=== PATIENT | male | born 1990 | race Caucasian/White ===

== ENCOUNTER 2017-05-04 14:27 | Emergency (ER) | payer BC ==
[2017-05-04 14:40] VITALS: BP 155/92
--- NOTE | 2017-05-04 14:44 | UC ---
Cardiac HPI - HPI Summary HPI Summary: Pt presents to with sister. 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 States he started to feel anxious. Pt states he then develop chest burning and sob. Pt states radiated from the stomach to right chest. Pt states he felt a little sweaty. Pt state sx continued for approx 3-0 min. States he went to the medical unit at [place] where they checked his BP which was high - he was recommended to come here. Pt states enroute here he started to feel improved. By the time of evaluation, pt without any complaints. States feels completely normal and "I shouldn't have come, it was just like my panic attacks." Pt without any complaints at the time of my eval. no cp, sob, abd pain. no n/v/d. No fever, chills, rash. No COTTO, vision changes. Pt states his previous PCP at [facility] in [place] wanted to start him on Paxil, but he was concerned of side effects so didn't start. Pt states this has been going on for years. No tobacco, no htn, dm, hld, family hx of cardiac. Pt states he walks a lot and pushes carts at work without chest pain, shortness of breath or difficulty pt's medications reviewed at this visit - History of Current Complaint Chief Complaint: UCChestPain Stated Complaint: CHEST PAIN Time Seen by Provider: 05/04/17 14:42 Hx Obtained From: Patient Onset/Duration: Sudden Onset, Lasting Minutes Initial Severity: Mild Current Severity: None Chest Pain Location: Discrete at: - epigastric, right chest - Allergy/Home Medications Allergies/Adverse Reactions: Allergies Allergy/AdvReac Type Severity Reaction Status Date / Time Latex Allergy Unknown Verified 02/11/16 15:07 Reaction Details Bees Allergy Severe Difficulty Uncoded 04/05/14 13:12 Breathing PMH/Surg Hx/FS Hx/Imm Hx Other History Of: Negative For: Anticoagulant Therapy - Surgical History Surgical History: Yes Surgery Procedure, Year, and Place: 2002 (right) index finger, open FX - Social History Alcohol Use: None Substance Use Type: None Smoking Status (MU): Never Smoked Tobacco Review of Systems Constitutional: Negative Skin: Negative Eyes: Negative ENT: Negative Respiratory: Other - epigastric radiating to right chest - resolved Cardiovascular: Chest Pain - epigastric radiating to right chest - resolved Gastrointestinal: Negative Genitourinary: Negative Motor: Negative Neurovascular: Other - paresthesia - resolved Musculoskeletal: Negative Neurological: Negative Psychological: Negative All Other Systems Reviewed And Are Negative: Yes Physical Exam Triage Information Reviewed: Yes Appearance: Well-Appearing - comfortable, NAD, No Pain Distress, Well-Nourished Vital Signs: Initial Vital Signs Temp 97.8 F 05/04/17 14:37 Pulse 81 05/04/17 14:37 Resp 18 05/04/17 14:37 BP 155/92 05/04/17 14:37 Pulse Ox 99 05/04/17 14:37 Vital Signs Reviewed: Yes Eye Exam: Normal Eyes: Positive: Conjunctiva Clear ENT Exam: Normal ENT: Positive: Normal ENT inspection, Hearing grossly normal, Pharynx normal, TMs normal Dental Exam: Normal Neck exam: Normal Neck: Positive: Supple, Nontender, No Lymphadenopathy Respiratory: Positive: Chest non-tender, Lungs clear, Normal breath sounds, No respiratory distress, No accessory muscle use, Other: - not reproducible no discomfort with ROM Cardiovascular Exam: Normal Cardiovascular: Positive: RRR, No Murmur, Pulses Normal Abdominal Exam: Normal Abdomen Description: Positive: Nontender, No Organomegaly, Soft Bowel Sounds: Positive: Present Musculoskeletal Exam: Normal Musculoskeletal: Positive: Strength Intact, ROM Intact, No Edema, Other: - No pain c/t/l/s Full AROM ext x 4 - no pain, not reproducible Neurological Exam: Normal Neurological: Positive: Alert, Muscle Tone Normal Psychological Exam: Normal Psychological: Positive: Normal Response To Family Skin Exam: Normal Diagnostics - Radiology No standard instances Xray Interpretation: No Acute Changes Radiology Interpretation Completed By: Radiologist - Order Information: CHEST PA LAT 2 VWS Accession Number: [id number] CPT: 18587 Indication: Chest pain. Shortness of breath. 2 views the chest including dual energy PA views demonstrate no mediastinal shift. It is normal size and configuration. Lungs are clear. When compared to previous exam of April 10, 2008 no significant change is noted. IMPRESSION: No active cardiopulmonary disease is noted. ____ <Electronically signed by Merry Fermin MD in OV> 05/04/171518 Dictated By: Merry Fermin MD Dictated Date/Time: 05/04/171518 Transcribed Date/Time: 05/04/171517 Re-Evaluation - Re-Evaluation First Eval Re-Evaluation Time: 15:35 Change: Unchanged - Pt continue to feel well without complaints. Will discharge pcp referral 911 with any changes or concerns - Assessment/Plan Course Of Treatment: Pt presents with episode of anxiety, panic and chest pain at work - all sx resolved at time of arrival. EKG without change from previous in 2013. Pt blood pressure was elevated at today's visit - it was recommended schedule a follow-up with PCP. Will check CXR. of neg will discharge. Pt needs PCP - will give referral. Pt and sister comfortable and in agreement with pain - Clinical Impression Provider Diagnoses: chest pain of unclear cause Discharge - Discharge Plan Condition: Stable Disposition: HOME Patient Education Materials: Chest Pain (ED) Forms: *Work Release Referrals: Adan Duran RPA [Primary Care Provider] - [facility] [place] [facility]FERRAL [Outside] Additional Instructions: - The doctor that evaluated you today feels it is safe for you to go home. - It is recommended you schedule a follow-up appointment with a primary care provider - you have been given the physician referral center - it recommend you call to schedule an appointment - If you symptoms return, you feel short of breath, have chest pain or any other concerns you should call 911 or go to the nearest emergency department
--- NOTE | 2017-05-04 15:22 | RAD ---
Indication: Chest pain. Shortness of breath. 2 views the chest including dual energy PA views demonstrate no mediastinal shift. It is normal size and configuration. Lungs are clear. When compared to previous exam of April 10, 2008 no significant change is noted. IMPRESSION: No active cardiopulmonary disease is noted.
== END 2017-05-04 16:01 | disposition home or self-care (01) ==
LOC: UCEAST 14:27
DX: R07.9 Chest pain, unspecified (principal); Z91.030 Bee allergy status; Z91.040 Latex allergy status
CPT/HCPCS: 71020; 93005; 99211; G0463

== ENCOUNTER 2017-09-08 03:21 | Emergency (ER) | payer SELFPAY ==
[2017-09-08] MEDS ORDERED: predniSONE TAB* 20 MG PO ONE (04:00)
[2017-09-08] MEDS ORDERED: Albuterol/Ipratropium NEB.SOL* Albuterol 2.5 MG/Ipratropium 0.5 MG 3 ML INH ONE (04:00)
[2017-09-08] MEDS ORDERED: Albuterol 2.5 MG/3 ML NEB.SOL* (0.083%) INH ONE (04:00)
--- NOTE | 2017-09-08 05:58 | ED ---
Day Mcqueen Gabriel, scribHardik Kaiser MD on 09/08/17 at 0409 . Respiratory - HPI Summary HPI Summary: This patient is a 27 year old M presenting to [facility] with a chief complaint of chest congestion since a week ago. The patient rates the pain 2/10 in severity. Patient reports rhinorrhea and his chest feels like its on fire. Patient denies fever. Patient has a history of asthma. - History of Current Complaint Chief Complaint: EDUpperRespComplaint Stated Complaint: CHEST COLD, COUGH, Time Seen by Provider: 09/08/17 03:36 Hx Obtained From: Patient Onset/Duration: Lasting Weeks - 1, Still Present Timing: Constant Initial Severity: Mild Current Severity: Mild Pain Intensity: 2 Sputum Amount: None Associated Signs and Symptoms: Negative - fever - Allergy/Home Medications Allergies/Adverse Reactions: Allergies Allergy/AdvReac Type Severity Reaction Status Date / Time Latex Allergy Unknown Verified 02/11/16 15:07 Reaction Details Penicillins Allergy Swelling Verified 09/08/17 03:34 Of Face,Lips,& Throat Bees Allergy Severe Difficulty Uncoded 04/05/14 13:12 Breathing PMH/Surg Hx/FS Hx/Imm Hx Endocrine/Hematology History: Denies: Hx Anticoagulant Therapy, Hx Diabetes, Hx Thyroid Disease Cardiovascular History: Reports: Hx Hypercholesterolemia Denies: Hx Hypertension, Hx Pacemaker/ICD Respiratory History: Reports: Hx Asthma - dx as a small child Denies: Hx Chronic Obstructive Pulmonary Disease (COPD) GI History: Reports: Other GI Disorders - recent onset diarrhea, change in bowel habits History: Denies: Hx Renal Disease Musculoskeletal History: Reports: Hx Orthopedic Injury - 2002 open FX of (right ) index finger, Other Musculoskeletal History - obesity Neurological History: Denies: Hx Dementia, Hx Seizures Psychiatric History: Reports: Hx Anxiety, Hx Panic Disorder Denies: Hx Substance Abuse - Surgical History Surgery Procedure, Year, and Place: 2002 (right) index finger, open FX Infectious Disease History: No Infectious Disease History: Denies: Hx Clostridium Difficile, Hx Hepatitis, Hx Human Immunodeficiency Virus (HIV), Hx of Known/Suspected MRSA, Hx Shingles, Hx Tuberculosis, Hx Known/ Suspected VRE, Hx Known/Suspected VRSA, History Other Infectious Disease, Traveled Outside the [place] in Last 30 Days - Family History Known Family History: Positive: Hypertension - Social History Alcohol Use: None Substance Use Type: Reports: None Hx Tobacco Use: No Smoking Status (MU): Never Smoked Tobacco Review of Systems Negative: Fever Positive: Nasal Discharge Positive: Other - chest congestion All Other Systems Reviewed And Are Negative: Yes Physical Exam - Summary Physical Exam Summary: VITAL SIGNS: Reviewed. GENERAL: Patient is a well-developed and nourished male who is lying comfortable in the stretcher. Patient is not in any acute respiratory distress. HEAD AND FACE: No signs of trauma. No ecchymosis, hematomas or skull depressions. No sinus tenderness. EYES: PERRLA, EOMI x 2, No injected conjunctiva, no nystagmus. EARS: Hearing grossly intact. Ear canals and tympanic membranes are within normal limits. MOUTH: Oropharynx within normal limits. NECK: Supple, trachea is midline, no adenopathy, no JVD, no carotid bruit, no c- spine tenderness, neck with full ROM. CHEST: Symmetric, no tenderness at palpation LUNGS: wheezes bilaterally CVS: Regular rate and rhythm, S1 and S2 present, no murmurs or gallops appreciated. ABDOMEN: Soft, non-tender. No signs of distention. No rebound no guarding, and no masses palpated. Bowel sounds are normal. EXTREMITIES: FROM in all major joints, no edema, no cyanosis or clubbing. NEURO: Alert and oriented x 3. No acute neurological deficits. Speech is normal and follows commands. SKIN: Dry and warm Triage Information Reviewed: Yes Vital Signs On Initial Exam: Initial Vitals Temp Pulse Resp BP Pulse Ox 97.5 F 86 18 139/84 97 09/08/17 03:31 09/08/17 03:31 09/08/17 03:31 09/08/17 03:31 09/08/17 03:31 Vital Signs Reviewed: Yes - Benoit Coma Scale Coma Scale Total: 15 Diagnostics - Vital Signs Vital Signs Temp Pulse Resp BP Pulse Ox 09/08/17 03:31 97.5 F 86 18 139/84 97 - Laboratory Lab Statement: Any lab studies that have been ordered have been reviewed, and results considered in the medical decision making process. - Radiology CXR Radiology Interpretation Completed By: ED Physician - no acute disease Disposition - Course Assessment/Plan: This patient is a 27 year old M presenting to [facility] with a chief complaint of chest congestion since a week ago. The patient rates the pain 2/10 in severity. Patient reports his chest feels like its on fire. Patient denies fever. Patient has a history of asthma. CXR reveals, no acute process. Test results with no significant abnormalities. In the ED course the patient was given Duoneb, albuterol, and prednisone. Patient will be discharged with prescription for prednisone and follow up from PCP. The patient is agreeable with this plan. - Diagnoses Provider Diagnoses: Asthma exacerbation Discharge - Discharge Plan Condition: Stable Disposition: HOME Prescriptions: predniSONE TAB* [Deltasone TAB*] 40 mg PO DAILY #10 tab Patient Education Materials: Prednisone (By mouth), Asthma (ED), Bronchospasm ( ED) Referrals: Adan Duran RPA [Primary Care Provider] - 2 Days Additional Instructions: RETURN TO EMERGENCY DEPARTMENT FOR ANY NEW OR WORSENING SYMPTOMS The documentation as recorded by the Day duval Gabriel accurately reflects the service I personally performed and the decisions made by me, Hardik Meyers MD.
[2017-09-08 06:00] VITALS: BP 144/76
--- NOTE | 2017-09-08 08:13 | RAD ---
HISTORY: Shortness of breath COMPARISONS: May 04, 2017 VIEWS: 1: frontal portable view of the chest at 4:07 AM FINDINGS: LINES AND TUBES: None. CARDIOMEDIASTINAL SILHOUETTE: The cardiomediastinal silhouette is normal for portable technique. PLEURA: The costophrenic angles are sharp. No pleural abnormalities are noted. LUNG PARENCHYMA: The lungs are clear. ABDOMEN: The upper abdomen is clear. There is no subphrenic gas. BONES AND SOFT TISSUES: No bone or soft tissue abnormalities are noted. IMPRESSION: NO ACTIVE CARDIOPULMONARY DISEASE.
== END 2017-09-08 05:59 | disposition home or self-care (01) ==
LOC: ED 03:21
DX: J45.901 Unspecified asthma with (acute) exacerbation (principal); R09.89 Other specified symptoms and signs involving the circulatory and respiratory systems
CPT/HCPCS: 71045; 87502; 94640; 99282; A9270-GY; J7512